=== PATIENT | female | born 1965 | race Hispanic/Latino ===

== ENCOUNTER 2018-01-28 06:38 | Day surgery (SDC) | payer MEDICAID ==
[2018-01-28] MEDS ORDERED: ECOTRIN PO NR (07:00)
[2018-01-28] MEDS ORDERED: NACL 0.9% 500 ML 500 ML IV SCH (07:00)
[2018-01-28 07:36] LABS: Basophils # (Auto) 0.1 K/mm3 (0.0-0.1); Basophils % (Auto) 0.8 % (0.0-1.8); Eosinophils # (Auto) 0.2 K/mm3 (0.0-0.4); Eosinophils % (Auto) 1.9 % (0.0-4.3); Hematocrit 35.9 % (30.3-42.9); Hemoglobin 12.1 gm/dl (10.1-14.3); Lymphocytes # (Auto) 2.6 K/mm3 (1.2-5.4); Lymphocytes % (Auto) 26.6 % (13.4-35.0); Mean Corpuscular HGB Conc 34 % (30-34); Mean Corpuscular Hemoglobin 29 pg (28-32); Mean Corpuscular Volume 87 fl (79-97); Monocytes # (Auto) 0.6 K/mm3 (0.0-0.8); Monocytes % (Auto) 6.1 % (0.0-7.3); Platelet Count 263 K/mm3 (140-440); Red Blood Count 4.16 M/mm3 (3.65-5.03)
[2018-01-28 07:49] LABS: INR 0.95 (0.87-1.13)
[2018-01-28] MEDS ORDERED: HEPARIN/NS 5000 UNIT/500ML(CATH LAB) 1,000 ML IR ONE (08:23)
[2018-01-28] MEDS ORDERED: VERSED ONE (08:23)
[2018-01-28] MEDS ORDERED: HEPARIN 10,000 UNITS/10 ML ONE (08:23)
[2018-01-28] MEDS ORDERED: CALAN ONE (08:24)
[2018-01-28] MEDS ORDERED: NITROGLYCERIN SYRINGE 3 ML ONE (08:24)
[2018-01-28] MEDS ORDERED: XYLOCAINE 2% INFILTRATI ONE (08:44)
[2018-01-28] MEDS: SUBLIMAZE ONE ×2 (08:47→08:48)
[2018-01-28] MEDS: XYLOCAINE 2% INFILTRATI ONE ×2 (08:48→08:49)
[2018-01-28 08:49] LABS: BUN/Creatinine Ratio 30; Blood Urea Nitrogen 21 mg/dL (7-17); Calcium 9.4 mg/dL (8.4-10.2); Hemolysis Index 4
--- NOTE | 2018-01-28 10:00 | Cardiac Catherization Report ---
CARDIAC CATHETERIZATION INDICATION FOR PROCEDURE: The patient is a very pleasant 52-year-old female with recurrent chest pain, risk factors, syncopal episode, referred for left heart catheterization. Risks, benefits, and potential alternatives were explained at length prior to obtaining informed consent. PROCEDURE IN DETAIL: The patient was brought to the culture media laboratory assistant in a postabsorptive state, prepped and draped in sterile fashion. Sj's test in right hand was normal. A 2 mL of 2% lidocaine used to anesthetize the right wrist. A standard 6-[place]i hydrophilic sheath used to cannulate the right radial artery via modified Seldinger technique. All exchanges performed to exchange a J-tip guidewire. JL3.5 catheter used to engage the left main. No dampening or ventricularization. Cineangiography performed in all projections. JR4 catheter was used to cross the aortic valve under fluoroscopic guidance. Left ventriculography performed in 30 NAIR and 30 SWAZI projections via hand injections, catheter flushed. Manual pullback performed with continuous pressure monitoring. Catheter used to engage the right coronary. No dampening or ventricularization. Cineangiography performed in all projections. JR4 catheter used to cross the aortic valve under fluoroscopic guidance. Next, due to recurrent chest pain, we performed a root aortography with a pigtail catheter in the SWAZI projection. Next, catheter removed from the body of wire, sheath removed, manual pressure used to obtain hemostasis. I directly supervised the administration of moderate sedation from 8:46 to 9:10 a.m. There were no immediate complications. DATA: Aortic pressure is 120/70, LV pressure is 120, LVEDP of 25 mmHg. Left ventriculography revealed normal systolic performance with estimated ejection fraction of 55% to 60%. No evidence of aortic stenosis. CORONARY ANATOMY: This is a right dominant system. Right coronary is a moderate sized vessel, courses AV groove, distally bifurcates into the posterior and posterolateral branch, should be noted that there is mild spasm on initial right coronary angiography. Intracoronary nitro was given, which vastly improved and resolved the spasm. No significant disease in the right dominant right coronary. Left main is short, no significant disease, bifurcates into left anterior descending and left circumflex. Left circumflex is a moderate sized vessel, courses AV groove. No significant disease. LAD is a moderate sized vessel, courses anterior interventricular groove, wraps around the apex. No significant disease in the LAD. The root aortography reveals normal contour, no evidence of dissection, aortic insufficiency or penetrating aortic ulcer. CONCLUSIONS: 1. No angiographic evidence of significant epicardial coronary disease in this right dominant system. 2. Mild right coronary spasm was noted, resolved very easily with intracoronary nitroglycerin, likely catheter related. No significant disease noted. 3. Normal left ventricular systolic performance, estimated ejection fraction of 55% to 60%. 4. No evidence of aortic stenosis. 5. Root aortography without evidence of dissection, penetrating aortic ulcer, or aortic insufficiency. At this point, recommend aggressive risk factor modification. Primary prevention measures. Continue Imdur, statin therapy and baby aspirin, stable cardiac status at this point, standard radial care. Follow up with me in the office. Results of procedure explained at length to the patient and family. All questions and concerns were addressed. JOB# [id number] ANDREI/SABINO
[2018-01-28 14:59] VITALS: BP 115/52
--- NOTE | 2018-01-29 15:46 | Short Stay Summary ---
Short Stay Documentation Date of service: 01/28/18 - History H&P: obtained from office - Allergies and Medications Current Medications: Allergies codeine Adverse Reaction (Unverified 01/28/18 06:38) Shortness of Breath Home Medications Medication Instructions Recorded Confirmed Last Taken Type Albuterol Sulfate [Ventolin HFA] 2 puff IH Q4H PRN 01/28/18 01/28/18 2 Weeks Ago History ~01/14/18 Aspirin [Lo-Dose Aspirin EC] 81 mg PO DAILY 01/28/18 01/28/18 01/27/18 History AtorvaSTATin [Lipitor] 10 mg PO QHS 01/28/18 01/28/18 01/27/18 History Dicyclomine [Bentyl] 20 mg PO QID 01/28/18 01/28/18 01/27/18 History ISOSORBIDE MONOnitrate [Imdur ER] 15 mg PO DAILY 01/28/18 01/28/18 01/27/18 History Lisinopril/Hydrochlorothiazide 1 tab PO QDAY 01/28/18 01/28/18 01/28/18 05:00 History [Zestoretic 20-25 mg] Pantoprazole [Protonix] 40 mg PO BID 01/28/18 01/28/18 01/27/18 History Sucralfate [Carafate] 1 gm PO QID 01/28/18 01/28/18 01/27/18 History Tamoxifen Citrate 20 mg PO DAILY 01/28/18 01/28/18 01/27/18 History - Brief post op/procedure progress note Date of procedure: 01/28/18 Pre-op diagnosis: chest pain Post-op diagnosis: same Procedure: [facility] - see dictated cath report Anesthesia: local Estimated blood loss: none Condition: stable - Disposition Condition at discharge: Good Disposition: [id number] TO HOME OR SELFCARE - Discharge Diagnoses (1) Chest pain Status: Acute (2) Syncope Status: Acute Short Stay Discharge Plan Activity: advance as tolerated Wound: open to air, keep clean and dry, per your surgeon's advice Additional Instructions: follow up with primary medical doctor in 1 week, return to (ER) emergency Room for medical emergency, follow up Dr. Florence in 1 week. Follow up with: SIRISHA DE LA GARZA MD [Primary Care Provider] - 7 Days Forms: CardCath PCI D/C Instructions
== END 2018-01-28 14:00 | disposition home or self-care (01) ==
LOC: CATHLABREC 06:38
PROVIDERS: ATTEND Internal Medicine
DX: I20.1 Angina pectoris with documented spasm (principal); E78.00 Pure hypercholesterolemia, unspecified; I10 Essential (primary) hypertension; J45.909 Unspecified asthma, uncomplicated; E06.9 Thyroiditis, unspecified; M16.0 Bilateral primary osteoarthritis of hip; F32.9 Major depressive disorder, single episode, unspecified; Z90.49 Acquired absence of other specified parts of digestive tract; Z98.890 Other specified postprocedural states; Z88.5 Allergy status to narcotic agent; Z79.82 Long term (current) use of aspirin; Z79.899 Other long term (current) drug therapy; Z85.9 Personal history of malignant neoplasm, unspecified
CPT/HCPCS: 36415; 80048; 85025; 85610; 93005; 93010; 93458; 93567; 99156; C1894; J1644; J2250; J3010; J7040; Q9967